=== PATIENT | male | born 1955 | race Caucasian/White ===

== ENCOUNTER 2025-03-22 11:11 | Observation (INO) | payer MEDICARE, OTHER ==
[~2025-03-22] VITALS: Ht 193 cm; Wt 89.8 kg
[2025-03-22] VITALS (7 sets, daily range): BP systolic 107–120; BP diastolic 67–80; PULSE 71–89; RESP 16–29; TEMP 97.9–98.5; O2SAT 91–92
[~2025-03-22 11:11] MED LIST: ARMO50TA2 PO; FURO40TA5 PO; LACT10SO9 PO; MIDO10TA3 PO; PANT40TA54 PO; RIFA550T PO; SPIR100T5 PO; TRAM50TA4 PO; TRAZ-187 PO
[2025-03-22] MEDS: FAMOTIDINE 20MG VIAL IV ONE (11:36)
[2025-03-22] MEDS: 0.9% NACL 500ML IV.SOLN 500 ML IV ONE (11:38)
--- NOTE | 2025-03-22 11:41 | ERN ---
General Chief Complaint: Allergic Reaction Stated Complaint: BEE STING Time Seen by MD: 11:13 Source: patient, family History of Present Illness Initial Comments PATIENT IS A 69-YEAR-OLD MALE COMING IN TO BE EVALUATED AFTER HE GOT BIT BY SEVERAL BEES. PATIENT STATES HE WAS MOVING SOME HAY COURT AND GOT STUNG BY SEVERAL BEES. Allergies: Coded Allergies: No Known Allergies (Unverified Allergy, Unknown, 01/10/14) No Known Drug Allergies (Unverified Allergy, Unknown, 01/07/14) Home Meds Reported Medications Lactulose (Lactulose) 20 Gm/30 Ml Solution, 20 GM PO TID, ML 06/23/14 Trazodone HCl (Trazodone HCl) 100 Mg Tablet, 100 MG PO HS, TAB 06/22/14 Tramadol Hcl (Tramadol HCl) 50 Mg Tablet, 50 MG PO TID PRN for PAIN, TAB 06/22/14 Spironolactone (Spironolactone) 100 Mg Tablet, 100 MG PO AM, TAB 06/22/14 Rifaximin (Xifaxan) 550 Mg Tablet, 550 MG PO BIDMEALS, TAB 06/22/14 Pantoprazole Sodium (Pantoprazole Sodium) 40 Mg Tablet.dr, 40 MG PO ACBKFST, TAB SCHEDULE AT 6AM 06/22/14 Midodrine HCl (Midodrine HCl) 10 Mg Tablet, 10 MG PO TID, TAB 06/22/14 Furosemide (Furosemide) 40 Mg Tablet, 40 MG PO BIDMEALS, TAB 06/22/14 Armodafinil (Nuvigil) 50 Mg Tablet, 50 MG PO ACBKFST, TAB 06/22/14 Past Medical History Past Medical History: Other Medical History Other: LIVER TRANSPLANT Past Surgical History: Other Surgical History Other: LIVER TRANSPATN ROS Dictation CONSTITUTIONAL: NO CHILLS, NO FEVER, NO WEAKNESS, NO DIAPHORESIS, NO MALAISE. HEAD/FACE: NO SIGNS OF TRAUMA. EENT: NO EYE PAIN, NO BLURRED VISION, NO TEARING, NO DOUBLE VISION, NO EAR PAIN, NO EAR DISCHARGE, NO NOSE PAIN, NO NASAL CONGESTION, NO THROAT PAIN, NO THROAT SWELLING, NO MOUTH PAIN. RESPIRATORY: NO COUGH, NO ORTHOPNEA, SOB, NO STRIDOR, NO WHEEZING. CARDIOVASCULAR: NO CHEST PAIN, NO EDEMA, NO PALPITATIONS, NO SYNCOPE. GASTROINTESTINAL/ABDOMINAL: NO ABDOMINAL PAIN, NO CONSTIPATION, NO DIARRHEA, NO NAUSEA, NO VOMITING. GENITOURINARY: NO ABNORMAL DISCHARGE, NO DYSURIA, NO FREQUENT URINATION, NO HEMATURIA. NO COMPLAINTS OF PAIN IN THE GENITALS. MUSCULOSKELETAL: NO BACK PAIN, NO GOUT, NO JOINT PAIN, NO JOINT SWELLING, NO MUSCLE PAIN, NO MUSCLE STIFFNESS, NO NECK PAIN. INTEGUMENTARY: NO CHANGE IN COLOR, NO CHANGE IN HAIR/NAILS, NO DRYNESS, NO LESION, NO LUMPS, NO RASH. NEUROLOGICAL/PSYCH: NO ANXIETY, NOT DEPRESSED, NO EMOTIONAL PROBLEM, NO HEADACHE, NO NUMBNESS, NO PRE-EXISTING DEFICIT, NO HISTORY OF SEIZURES, NO TREMORS, NO WEAKNESS. HEMATOLOGIC/LYMPHATIC: NOT ANEMIC, NO HISTORY OF BLOOD CLOTS, NO APPARENT BLEEDING, NO BRUISING, GLANDS NOT SWOLLEN. ALL SYSTEMS NEGATIVE, EXCEPT NOTED. Physical Exam Physical Exam Dictation VITAL SIGNS: REVIEWED. GENERAL APPEARANCE: ALERT, ORIENTED X3, NO ACUTE DISTRESS, OBESE. HEAD AND FACE: NON-TRAUMATIC. EYES: PERRL, PINK CONJUNCTIVAS, EYELID NO TRAUMA, ANTERIOR CHAMBER CLEAR. EARS: PINNAS INTACT AND NO SIGNS OF TRAUMA OR ERYTHEMA. EAR CANALS CLEAR AND NO DISCHARGE. TMS NO ERYTHEMA. NOSE: NO DISCHARGE, NO BLEEDING. OROPHARYNX: MOUTH NORMAL, TEETH NO CARIES, TONGUE PINK. PHARYNX CLEAR, NO ERYTHEMA. TONSILS NO EXUDATES, NO ABSCESSES NOTED. MUCOUS MEMBRANE MOIST. NECK: SUPPLE, NON-TENDER, NO THYROMEGALY, NO MASSES, NO JVD, NO BRUITS. BREAST: DEFERRED. CHEST: NO TENDERNESS, NO CREPITUS, NO PARADOXICAL MOVEMENT, NO RETRACTIONS. LUNGS: CLEAR, WELL-VENTILATED, SYMMETRIC, NO RALES, NO WHEEZING, NO RHONCHI, NO STRIDOR, GOOD BREATH SOUNDS BILATERALLY. HEART: REGULAR RATE, REGULAR RHYTHM, NO MURMUR, NO GALLOPS. VASCULAR: NO PERIPHERAL EDEMA. ABDOMEN: SOFT, POSITIVE BOWEL SOUNDS, NONDISTENDED, NO GUARDING, NONTENDER, NO REBOUND, NO MASSES NO HEPATOMEGALY, NO SPLENOMEGALY, NO WEBBER'S SIGN, NO HERNIAS. RECTAL: DEFERRED. GENITAL: DEFERRED. NEUROLOGICAL: NORMAL SPEECH, GROSS MOTOR FUNCTION INTACT, GROSS SENSORY FUNCTION INTACT. MUSCULOSKELETAL: NECK NONTENDER, FULL RANGE OF MOTION, BACK NONTENDER, FULL RANGE OF MOTION. EXTREMITIES: NONTENDER, FULL RANGE OF MOTION. SKIN: COLOR PINK, DRY, NO TURGOR, NO RASH, NO LACERATIONS, NO ABRASIONS, NO CONTUSIONS. LYMPHATICS: DEFERRED. Results Laboratory and Microbiology Labs Reviewed?: Yes MDM MDM: DIFFERENTIAL DIAGNOSIS: BEE STING, ALLERGIC REACTION, RATIONALE: TESTS CONSIDERED AND ORDERED SECONDARY TO SHARED DECISION MAKING INCLUDE: LABS, ECG AND RADIOLOGY PREVIOUS OUTSIDE RECORDS REVIEWED: OLD ER VISITS. RISK OF COMPLICATION AND/OR MORBIDITY OR MORTALITY OF PATIENT MANAGEMENT: NONE MEDICATIONS-PER MEDICATION RECONCILIATION NEED FOR HOSPITALIZATION: PATIENT DOES MEET CRITERIA FOR HOSPITALIZATION. NEED FOR EMERGENCY MAJOR/MINOR SURGERY: NO THERE ARE NO SOCIAL CONCERNS WITH THIS PATIENT. PRESCRIPTION DRUG MANAGEMENT PRESCRIPTIONS WILL INCLUDE SYMPTOMATIC CARE PATIENT'S PRIOR EXTERNAL MEDICAL RECORDS FROM OTHER ER VISITS WERE REVIEWED BY ME INDICATED. PRIOR TESTING AND RESULTS FROM PREVIOUS VISITS WERE REVIEWED. PRIOR TESTS WERE TAKEN INTO ACCOUNT WITH MEDICAL DECISION MAKING AND RESOURCE UTILIZATION, INDEPENDENT HISTORIAN/HISTORIANS WERE USED TO OBTAIN COMPLETE MEDICAL HISTORY. I INDEPENDENTLY INTERPRETED THE TEST THAT WERE PERFORMED, RESULTS WERE REVIEWED BY ME AND CONSIDERED FINDINGS ON RADIOLOGY IF ORDERED. MEDICAL MANAGEMENT AND EXAMINATION INTERPRETATION DISCUSSIONS WERE HAD BY ME WITH OTHER QUALIFIED HEALTHCARE PROFESSIONALS INDICATED FOR THE PATIENT'S CARE. PATIENT WILL BE ADMITTED UNDER THE CARE OF HOSPITALIST GROUP FOR ONGOING MANAGEMENT. ED Course Orders Procedure Category Date Status Time Methylprednisolone PHA 03/22/25 Complete Succ 125mg (Solu-Medr 11:30 Famotidine 20mg Vial PHA 03/22/25 Complete (Pepcid 20mg Vial) 11:30 Diphenhydramine Hcl PHA 03/22/25 Complete (Benadryl Inj) 11:30 0.9% Nacl 500ml PHA 03/22/25 Complete Iv.Soln (Ns 500ml 11:30 Cbc With Differential LAB 03/22/25 Transmitted 11:37 Basic Metabolic Panel LAB 03/22/25 Transmitted 11:37 Creatine Kinase, Total LAB 03/22/25 Transmitted 11:37 12 Lead Ekg Tracing- EKG 03/22/25 Transmitted Technical 11:37 Chest 1vw RAD 03/22/25 Verified 11:37 Current Medications Medications (Trade) Dose Ordered Sig/Cedrick Route PRN Reason Start Time Stop Time Status Last Admin Dose Admin Diphenhydramine HCl (BENAdryl INJ) 25 mg ONCE ONCE IV 03/22/25 11:30 03/22/25 11:31 DC Famotidine (Pepcid 20mg Vial) 20 mg ONCE ONCE IV 03/22/25 11:30 03/22/25 11:31 DC Methylprednisolone Sodium Succinate (Solu-medROL 125MG) 125 mg ONCE ONCE IVP 03/22/25 11:30 03/22/25 11:31 DC Sodium Chloride 500 ml @ 0 mls/hr ONCE ONCE IV 03/22/25 11:30 03/22/25 11:31 DC Vital Signs Date Time Temp Pulse Resp B/P (MAP) Pulse Ox O2 Delivery O2 Flow Rate FiO2 03/22/25 11:12 98.4 95 20 122/74 94 Room Air DX & DISP Disposition: Inpatient Decision to Admit Time: 11:41 Departure Impression: Primary Impression: Allergic reaction Additional Impressions: Bee sting, Shortness of breath Condition: Stable Referrals: DELVIN BARBOUR MD (PCP) RADHA VASQUEZ MD Mar 22, 2025 11:41
--- NOTE | 2025-03-22 11:53 | EKG ---
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
[2025-03-22 11:54] LABS: IMMATURE GRANULOCYTE ABSOLUTE 0.08 K/uL (0-1); NUCLEATED RED BLOOD CELLS 0.0 % (0.0-0.19); PLATELET COUNT (AUTO) 247 K/uL (130-400); RED BLOOD CELL COUNT(AUTO) 4.86 MIL/uL (4.50-6.20); RED CELL DISTRIBUTION WIDTH 12.9 % (11.0-15.5); WHITE BLOOD COUNT (AUTO) 12.3 K/uL (4.8-10.8)
[2025-03-22] MEDS: ALBUTEROL 0.083% 2.5 MG/3 ML INH IH ONE (11:54)
[2025-03-22 12:02] LABS: CREATININE 0.9 mg/dL (0.5-1.3); GLOMERULAR FILTR. RATE CALC 92.0 mL/min (>90); GLUCOSE,RANDOM 150.0 mg/dL (70-105); SODIUM SERUM 136.0 mmol/L (136-145); UREA NITROGEN, BLOOD 21.0 mg/dL (7-18)
[2025-03-22 12:07] LABS: CREATINE KINASE, TOTAL 64.0 U/L (21-232)
--- NOTE | 2025-03-22 12:23 | HP ---
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 He was stung by bees. Per patient he has had bee stings before and has not had significant reaction in the past. He has taken Benadryl in the past for business. This time he got bit by multiple bees. EMS was called who brought the patient to the hospital. Patient did not need epinephrine and was not noted to be hypotensive. Patient currently denies any chest pain, shortness of breath, throat swelling, tongue swelling, difficulty breathing, abdominal pain, nausea, vomiting. Patient has a history of liver transplant and is being followed by hepatology and [place]. He took his morning medications today. Denies any fever, chills. Labs were notable for white count of 12.3, hemoglobin is 14.6, platelet count is 247 K sodium is 136, potassium was 4.4, chloride is 100, bicarb is 30, BUN is 21, creatinine is 0.9, blood glucose is 150 ED patient received methylprednisolone 125 mg IV, Pepcid 20 mg, Benadryl 25 mg, 500 mL NS, albuterol 2.5 mg once Over 30 bee-stings were removed by ED On presentation patient's temperature was 98.4, heart rate was 95, blood pressure was 122/74. Patient saturation went down to 89 and he was placed on 2 L nasal cannula with subsequent improvement. Patient was thereafter recommended to be admitted to the hospital for further evaluation. REVIEW OF SYSTEMS CONSTITUTIONAL: Denies fevers, chills, or night sweats. No unintentional weight loss reported. NEUROLOGICAL: Denies headache, amaurosis fugax, motor weakness, sensory deficit, vertigo/spinning sensation, gait abnormalities, or tremors. ENT: No hearing loss, otalgia, otorrhea, rhinitis, rhinorrhea, hoarseness, or sore throat. CARDIOVASCULAR: Denies any exertional angina, dyspnea on exertion, orthopnea, paroxysmal nocturnal dyspnea, palpitations, life-threatening arrhythmias, claudication. PULMONARY: Denies any shortness of breath, cough, phlegm/sputum, hemoptysis, pleuritic chest pain. GASTROINTESTINAL: Denies any type of dysphagia to either liquids or solids. Denies nausea, vomiting, pyrosis, early satiety, abdominal pain, diarrhea, constipation, or changes in stool consistency or caliber. Denies coffee-ground emesis, hematemesis, hematochezia, or melanotic stools. GENITOURINARY: Denies frequency, urgency, nocturia, hematuria or incontinence (Storage/Irritative symptoms.) Low urinary stream, straining to void, urinary intermittency or hesitancy, splitting of the voiding stream, terminal dribbling. ENDOCRINOLOGIC: Denies polyuria, polydipsia, polyphagia or heat/cold intolerances. HEMATOLOGIC: Denies thrombophilia/previous clots, or coagulopathy/bleeding disorders. ONCOLOGIC: Denies personal history of malignancy. DERMATOLOGIC: Denies rashes or pruritus. PSYCHIATRIC: Denies any suicidal or homicidal ideation. Denies hallucinations. PAST MEDICAL HISTORY: History of nonalcoholic liver cirrhosis status post liver transplant, hypertension, DM2 PAST SURGICAL HISTORY: Liver transplant performed in [place] PAST SOCIAL HISTORY: Denied any smoking, alcohol, drug use FAMILY HISTORY: Denied any pertinent family history Coded Allergies: codeine (Verified Allergy, Unknown, 03/22/25) PHYSICAL EXAM GENERAL APPEARANCE: The patient is awake, alert, and oriented, in no acute cardiopulmonary distress. NEUROLOGICAL: Cranial nerves II-XII grossly intact. Motor is 5/5 in bilateral upper and lower extremities proximal to distal. No sensory deficits. HEENT: Face is symmetric. Pupils are equal and reactive. Extraocular movements are intact. Patient has a facial swelling noted with lip swelling. There is erythema on the face secondary. No tongue swelling noted NECK: Supple. No JVD. No thyromegaly. No submental, submandibular, pre-/postauricular, occipital or supraclavicular lymphadenopathy. CHEST: Normal chest expansion. No Telemetry. LUNGS: Absence of any rales, rhonchi or any wheezing. CARDIOVASCULAR: Regular. S1 and S2 normal. No appreciable rubs, murmurs or gallops. ABDOMEN: Soft, nontender, and nondistended. There is no rebound, voluntary guarding, or rigidity. : Deferred. No Bazzi. EXTREMITIES: Non-edematous and not cyanotic. No clubbing. Good capillary refill. SKIN: He has erythema on the upper extremity with hives noted secondary to bee sting Vital Sign (Last 24 Hours) 03/22/25 03/22/25 11:49 11:55 Temp 97.9 Pulse 80 Resp 16 B/P (MAP) 114/67 Pulse Ox 97 O2 Delivery Nasal Cannula* O2 Flow Rate 2 FiO2 28 LABS: Laboratory: Test 03/22/25 11:45 Range/Units White Blood Count 12.3 H 4.8-10.8 K/uL Red Blood Count 4.86 4.50-6.20 MIL/uL Hemoglobin 14.6 14.0-18.0 g/dL Hematocrit 44.7 42-54 % Mean Corpuscular Volume 92.0 79-99 fL Mean Corpuscular Hemoglobin 30.0 27.0-33.0 pg Mean Corpuscular Hemoglobin Concent 32.7 32.0-36.0 g/dL Red Cell Distribution Width 12.9 11.0-15.5 % Platelet Count 247 130-400 K/uL Mean Platelet Volume 8.9 7.5-10.5 fL Immature Granulocyte % (Auto) 0.7 0-1 % Neutrophils (%) (Auto) 77.4 H 40.0-77.0 % Lymphocytes (%) (Auto) 16.2 L 21.0-51.0 % Monocytes (%) (Auto) 5.1 3.0-13.0 % Eosinophils (%) (Auto) 0.4 0.0-8.0 % Basophils (%) (Auto) 0.2 0.0-5.0 % Neutrophils # (Auto) 9.5 H 1.8-7.7 K/uL Lymphocytes # (Auto) 2.0 1.0-4.8 K/uL Monocytes # (Auto) 0.6 0.1-1.0 K/uL Eosinophils # (Auto) 0.05 0.00-0.70 K/uL Basophils # (Auto) 0.03 0.00-0.20 K/uL Absolute Immature Granulocyte (auto 0.08 0-1 K/uL Nucleated Red Blood Cells 0.0 0.0-0.19 % Sodium Level 136 136-145 mmol/L Potassium Level 4.4 3.5-5.1 mmol/L Chloride Level 100 L 101-111 mmol/L Carbon Dioxide Level 30 21-32 mmol/L Blood Urea Nitrogen 21 H 7-18 mg/dL Creatinine 0.9 0.5-1.3 mg/dL Glomerular Filtration Rate Calc 92 >90 mL/min Random Glucose 150 H 70-105 mg/dL Total Calcium 9.3 8.5-10.1 mg/dL Total Creatine Kinase 64 21-232 U/L DIAGNOSTICS / RADIOLOGY: Chest x-ray currently pending ASSESSMENT: Allergic reaction to bee sting History of liver transplant Leukocytosis likely in setting of allergic reaction Immunosuppressed states PLAN: -patient to be admitted to [facility] -in reference to allergic reaction to bee sting. Patient will continue on Solu- Medrol 40 mg IV q.8 hours. The patient will continue on IV Pepcid. We will request consultation with pulmonology. Patient will benefit from outpatient allergy evaluation once discharged from the hospital. Patient we will follow up with his primary care provider. -check LFT, hemoglobin A1c -obtain patient's home medications which will be reconciled once available -closely monitor for any fevers. If febrile, patient will be started on antibiotics Advanced Care Planning Which of the following were discussed: Hospice care: Yes __ No _x_ Therapeutic options: Yes __ No __ Advance directives: Yes __ No __ Other discussions: Pt is full code Discussed with who?: patient (Patient, family or surrogates) Voluntary nature of this service was explained to the patient? Yes _x_ No __ Amount of time spent: 20 minutes BLANCA Gonsales MD, MD Mar 22, 2025 12:23
[2025-03-22 12:51] LABS: ASPARTATE AMINOTRANSFERASE 17.0 U/L (10-37); TOTAL PROTEIN, SERUM 8.2 g/dL (6.0-8.3)
--- NOTE | 2025-03-22 12:58 | HMCIMG ---
EXAM: CR Chest, 1 View. CLINICAL HISTORY: SOB COMPARISON: Radiograph dated April 20, 2014 FINDINGS: LUNGS: There is multifocal airspace disease within the mid to lower lungs bilaterally. PLEURAL SPACES: No evidence of pleural effusion or pneumothorax. MEDIASTINUM: The cardiomediastinal silhouette is within normal limits. BONES: No aggressive appearing osseous lesion seen. IMPRESSION: 1. Multifocal airspace disease in bilateral mid to lower lungs. /[place]
[2025-03-22] MEDS ORDERED: DEXTROSE 50%-WATER 50 ML DISP.SYRIN IV PRN (13:00)
[2025-03-22] MEDS ORDERED: GLUCAGON 1MG KIT 1 MG ML IM PRN (13:00)
--- NOTE | 2025-03-22 13:28 | CONS ---
[facility] CONSULTATION NOTE Date Patient Seen: Mar 22, 2025 Time of Visit: 13:28 Supervising Physician: Dr. 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 HPI was also give by at bedside. Patient denied any SOB, denied inability to swallow, tongue swelling or difficulty breathing. On arrival to the ER, WBC 12.3, CXR showed multifocal airspace disease in bilateral mid to lower lungs. Pending CT chest. In the ER, he was given solu- medrol 125mg IV, Pepcid, Benadryl 25mg IV, 500ml NS and Albuterol 2.5mg once. Over 30 bee stinger were removed. While in the ER, patient SPO2 levels decreased to 89%, subsequently placed on 2 L nasal cannula with improvement. Patient was thereafter recommended to be admitted to the hospital for further evaluation by hospitalist. BIS was consulted for further recommendations. Upon assessment, patient is AAOX3. Currently on 02@2LPM via CA. Denies SOB, no wheezing or stridor audible. Denies any chest pain, abdominal pain, nausea or vomiting. States he feels fine overall. Thank you for consult, we will continue to follow. Plan: Start on Solu-Medrol 40mg IVP every [address] chest to result, follow results Benadryl cream for right arm redness One dose of oral Benadryl later today AM labs Monitor SPO2 levels closely, oxygen to keep SPO2 greater than 90% PAST MEDICAL HX: see above PAST SURGICAL HX: noncontributory SOCIAL HISTORY: No tobacco, ETOH, or illicit drug use Former tobacco chewer Coded Allergies: codeine (Verified Allergy, Unknown, 03/22/25) REVIEW OF SYSTEMS: 12 point ROS reviewed with patient. Pertinent positives mentioned above. Otherwise negative. PHYSICAL EXAM: GENERAL: alert, weak, awake oriented x 3 on NC HEENT: EOMI, Sclera non icteric, moist mucosa (+) erythema to right arm and a round eyes NECK: Supple, no JVD, trachea midline LUNGS: Clear breath sounds bilaterally. No wheezes HEART: Regular rate and rhythm. Normal S1 and S2, without murmurs ABD: Abdomen soft, nontender. Bowel sounds present EXT: No clubbing cyanosis or edema NEURO: AAOX3, follows commands Vital Signs (last 8hr) Date Time Temp Pulse Resp B/P (MAP) Pulse Ox O2 Delivery O2 Flow Rate FiO2 03/22/25 11:55 80 16 03/22/25 11:49 97.9 102 14 114/67 97 Nasal Cannula* 2 28 03/22/25 11:12 98.4 95 20 122/74 94 Room Air LABS: Hematology Labs: Test 03/22/25 11:45 Range/Units White Blood Count 12.3 H 4.8-10.8 K/uL Red Blood Count 4.86 4.50-6.20 MIL/uL Hemoglobin 14.6 14.0-18.0 g/dL Hematocrit 44.7 42-54 % Mean Corpuscular Volume 92.0 79-99 fL Mean Corpuscular Hemoglobin 30.0 27.0-33.0 pg Mean Corpuscular Hemoglobin Concent 32.7 32.0-36.0 g/dL Red Cell Distribution Width 12.9 11.0-15.5 % Platelet Count 247 130-400 K/uL Mean Platelet Volume 8.9 7.5-10.5 fL Immature Granulocyte % (Auto) 0.7 0-1 % Neutrophils (%) (Auto) 77.4 H 40.0-77.0 % Lymphocytes (%) (Auto) 16.2 L 21.0-51.0 % Monocytes (%) (Auto) 5.1 3.0-13.0 % Eosinophils (%) (Auto) 0.4 0.0-8.0 % Basophils (%) (Auto) 0.2 0.0-5.0 % Neutrophils # (Auto) 9.5 H 1.8-7.7 K/uL Lymphocytes # (Auto) 2.0 1.0-4.8 K/uL Monocytes # (Auto) 0.6 0.1-1.0 K/uL Eosinophils # (Auto) 0.05 0.00-0.70 K/uL Basophils # (Auto) 0.03 0.00-0.20 K/uL Absolute Immature Granulocyte (auto 0.08 0-1 K/uL Nucleated Red Blood Cells 0.0 0.0-0.19 % Chemistry Labs: Test 03/22/25 11:45 Range/Units Sodium Level 136 136-145 mmol/L Potassium Level 4.4 3.5-5.1 mmol/L Chloride Level 100 L 101-111 mmol/L Carbon Dioxide Level 30 21-32 mmol/L Blood Urea Nitrogen 21 H 7-18 mg/dL Creatinine 0.9 0.5-1.3 mg/dL Glomerular Filtration Rate Calc 92 >90 mL/min Random Glucose 150 H 70-105 mg/dL Hemoglobin A1c 6.5 H 4.0-6.0 % Estimated Average Glucose (eAG) 140 H 70-126 mg/dL Total Calcium 9.3 8.5-10.1 mg/dL Total Bilirubin 0.5 0.2-1.0 mg/dL Direct Bilirubin 0.2 0.0-0.3 mg/dL Aspartate Amino Transf (AST/SGOT) 17 10-37 U/L Alanine Aminotransferase (ALT/SGPT) 25 12-78 U/L Alkaline Phosphatase 103 50-136 U/L Total Creatine Kinase 64 21-232 U/L Total Protein 8.2 6.0-8.3 g/dL Albumin 3.9 3.5-5.0 g/dL Procalcitonin < 0.05 L 0.05-0.5 ng/mL DIAGNOSTICS / RADIOLOGY RESULTS: PROCEDURE: CXR1VW - CHEST 1VW EXAM: CR Chest, 1 View. CLINICAL HISTORY: SOB COMPARISON: Radiograph dated April 20, 2014 FINDINGS: LUNGS: There is multifocal airspace disease within the mid to lower lungs bilaterally. PLEURAL SPACES: No evidence of pleural effusion or pneumothorax. MEDIASTINUM: The cardiomediastinal silhouette is within normal limits. BONES: No aggressive appearing osseous lesion seen. IMPRESSION: 1. Multifocal airspace disease in bilateral mid to lower lungs. /VISHAL Miranda NP Mar 22, 2025 13:28
[2025-03-22] MEDS ORDERED: Solu-medROL 40MG VIAL IVP SCH (13:30)
[2025-03-22 14:08] LABS: SARS-CoV-2, RNA, NAAT NEGATIVE SARS CoV-2 (NEGATIVE)
[2025-03-22 14:14] LABS: INFLUENZA TYPE A Negative For Type A (NEGATIVE); INFLUENZA TYPE B Negative For Type B (NEGATIVE)
[2025-03-22] MEDS: SODIUM CHLORIDE 3% FOR INHALATION 4 ML/AMP VIAL.NEB IH ONE (14:33)
--- NOTE | 2025-03-22 15:03 | HMCIMG ---
EXAM: CT Chest Without IV contrast. CLINICAL HISTORY: Possible pneumonia. TECHNIQUE: Axial computed tomography images of the chest without intravenous contrast. COMPARISON: None provided. FINDINGS: LUNGS: Focal subpleural areas of consolidation in right lower lobe is seen. Fibroatelectatic and fibrobronchiectatic changes are seen in both lower lobes predominantly on right side. Partial volume loss of right lung parenchyma seen with right sided mediastinal shift. Compensatory hyperexpansion of left lung parenchyma is seen. Multiple ground-glass centrilobular nodules are seen in both lungs predominantly on the right side. PLEURAL SPACES: No pneumothorax evident. Minimal right-sided pleural effusion. HEART: No cardiomegaly. No significant pericardial effusion. Atherosclerotic changes in aorta. LYMPH NODES: No significant lymphadenopathy is evident. Few subcentimetre sized right paratracheal, subcarinal, AP window and prevascular lymph nodes are seen. UPPER ABDOMEN: The upper abdominal solid organs are unremarkable. An ill-defined hypodense right thyroid lobe nodule is seen measuring 3.8 x 3 cm. It is showing mild retrosternal extension. BONES: No acute osseous abnormality. Degenerative changes of visualised spine. IMPRESSION: 1. Right lower lobe consolidation, concerning for pneumonia. 2. Small right pleural effusion. 3. Chronic right lung volume loss with mediastinal shift and compensatory left lung hyperexpansion. 4. Bilateral ground-glass centrilobular nodules, right greater than left. These likely reflect an infectious and/or inflammatory process, recommend follow-up CT imaging. 5. 3.8 x 3 cm right thyroid nodule with mild retrosternal extension. Recommend ultrasound correlation. /[place]
[2025-03-22] MEDS ORDERED: METO25TA6 PO (15:35)
[2025-03-22] MEDS ORDERED: LOSA50TA64 PO (15:35)
[2025-03-22] MEDS ORDERED: ENTE0.5T12 PO (15:35)
[2025-03-22] MEDS ORDERED: ZINC220T4 PO (15:35)
[2025-03-22] MEDS ORDERED: CHOL1CAP16 PO (15:35)
[2025-03-22] MEDS ORDERED: ROSU10TA72 PO (15:35)
[2025-03-22] MEDS ORDERED: EMPA10TA PO (15:35)
[2025-03-22] MEDS ORDERED: MULT-1203 PO (15:35)
[2025-03-22] MEDS ORDERED: SEMA0.258 SQ (15:35)
[2025-03-22] MEDS ORDERED: TACR1CAP10 PO (15:35)
[2025-03-22] MEDS ORDERED: PRAM0.7519 PO (15:35)
[2025-03-22 16:20] LABS: APPEARANCE,URINE CLEAR (CLEAR); GLUCOSE, URINE (UA) >=1000 mg/dL (NEGATIVE); LEUKOCYTE ESTERASE ,URINE NEGATIVE Leu/uL (NEGATIVE); NITRATE,URINE NEGATIVE (NEGATIVE); OCCULT BLOOD,URINE NEGATIVE (NEGATIVE)
--- NOTE | 2025-03-22 16:20 | NUR ---
DCP:HOME Pt currently lives at home with his sps Myla Pabon [phone]. pt does not have any DME, home health, and/or provider services. Pt states that he is able to complete ADLs independently. PCP is Dr. Blsa Gnozalez and uses [facility] for any RX needs. At CT pt will want to go home and family can assist with transportation services. Addendum: 03/22/25 at 1622 by JOHNSON LARSON SS Amended: Links added.
[2025-03-22 16:23] LABS: ADD UA MICROSCOPIC NO
[2025-03-22] MEDS: ROSUVASTATIN CALCIUM PO SCH (17:00)
--- NOTE | 2025-03-22 17:58 | CONS ---
GASTROENTEROLOGY CONSULTATION NOTE Date of Consultation: Mar 22, 2025 Time of Consultation: 17:54 History of Present Illness: [ This is a 69-year-old male patient who presents to the emergency room after getting stung by several bees. 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 Were consulted for history of liver transplant. Admission WBC of 12.3, hemoglobin 14.6, platelets 247. Chemistry significant for chloride of 100, BUN 21, glucose of 150, hemoglobin A1c of 6.5, total bilirubin 0.5, direct bilirubin 0.2, AST and ALT are normal, alkaline phosphatase of 103. Total protein 8.2, and albumin of 3.9. Chest x-ray significant for multifocal airspace disease in bilateral mid to lower lungs. Chest CT IMPRESSION: 1. Right lower lobe consolidation, concerning for pneumonia. 2. Small right pleural effusion. 3. Chronic right lung volume loss with mediastinal shift and compensatory left lung hyperexpansion. 4. Bilateral ground-glass centrilobular nodules, right greater than left. These likely reflect an infectious and/or inflammatory process, recommend follow-up CT imaging. 5. 3.8 x 3 cm right thyroid nodule with mild retrosternal extension. Recommend ultrasound correlation. On exam, patient is awake and alert and in no acute distress. Swelling noted to his face and ears. Patient reports having multiple bee-stings to face and neck. Spouse at bedside said swelling has decreased to face and ears. She reports that she has already been in contact with patient's liver specialist from [place] as well as her PCP in [place], [place]. Recommend patient f/u next week with pcp. Patient and spouse agreed. ] Review of Systems: CONSTITUTIONAL: No malaise or change in sensation of wellbeing. ENMT: No rhinorrhea, otorrhea, sinus pain, ear ache. CARDIOVASCULAR: No angina, palpitations, orthopnea or paroxysmal dyspnea. RESPIRATORY: No SOB. GASTROINTESTINAL: No abdominal pain, nausea, vomiting, diarrhea, hematemesis, melena or change in the patient's habitual bowel movements consistency/number. GENITOURINARY: No dysuria, hematuria or change in bladder continence. MUSCULOSKELETAL: No new muscle pain or decrease in muscular strength. No new joint swelling, redness or tenderness. SKIN: No new rash. Past Medical History: [ ] Past Surgical History: [ ] Past Social History: [ ] Family History: [ ] Coded Allergies: codeine (Verified Allergy, Unknown, 03/22/25) Physical Exam: GEN: Awake, alert, oriented in person, time and place, and in no acute distress. HEENT: Mild swelling and erythema to bilateral ears noted. No rhinorrhea. Oral pharyngeal mucosa is pink, moist and within normal limits. Neck with multiple erythematous areas. CHEST: Inspection, palpation and percussion of the chest were unremarkable. Lung auscultation revealed normal breath sounds bilaterally. CARDIAC: PMI is within normal limits. Heart sounds are regular. ABD: Soft, non-tender and not distended. No peritoneal signs on palpation. No organomegaly. Normal bowel sounds. EXT: No cyanosis or clubbing. No edema. SKIN: Intact. No rashes. JOINTS: No evidence of synovitis or acute arthritis. NEURO: Alert and oriented to name, place and person. No focal motor deficits. Normal speech. Strength is normal. Vital Sign (Last 24 Hours) 03/22/25 03/22/25 11:49 16:00 Temp 98.1 Pulse 76 Resp 19 B/P (MAP) 115/73 Pulse Ox 97 O2 Delivery Nasal Cannula O2 Flow Rate 2.0 FiO2 28 Laboratory: [ ] Laboratory: Test 03/22/25 16:00 03/22/25 13:50 03/22/25 11:45 Range/Units Urine Color LIGHT-YELLOW YELLOW Urine Appearance CLEAR CLEAR Urine pH 5.0 5.0-8.0 Urine Specific [place] 1.015 1.001-1.031 Urine Protein NEGATIVE NEGATIVE mg/dL Urine Glucose (UA) >=1000 H NEGATIVE mg/dL Urine Ketones 10 H NEGATIVE mg/dL Urine Occult Blood NEGATIVE NEGATIVE Urine Nitrate NEGATIVE NEGATIVE Urine Bilirubin NEGATIVE NEGATIVE mg/dL Urine Urobilinogen 0.2 0.2-1.0 mg/dL Urine Leukocyte Esterase NEGATIVE NEGATIVE Michelle/uL Influenza Type A Antigen Negative For Type A NEGATIVE Influenza Type B Antigen Negative For Type B NEGATIVE SARS-CoV-2, RNA, NAAT NEGATIVE SARS CoV-2 NEGATIVE White Blood Count 12.3 H 4.8-10.8 K/uL Red Blood Count 4.86 4.50-6.20 MIL/uL Hemoglobin 14.6 14.0-18.0 g/dL Hematocrit 44.7 42-54 % Mean Corpuscular Volume 92.0 79-99 fL Mean Corpuscular Hemoglobin 30.0 27.0-33.0 pg Mean Corpuscular Hemoglobin Concent 32.7 32.0-36.0 g/dL Red Cell Distribution Width 12.9 11.0-15.5 % Platelet Count 247 130-400 K/uL Mean Platelet Volume 8.9 7.5-10.5 fL Immature Granulocyte % (Auto) 0.7 0-1 % Neutrophils (%) (Auto) 77.4 H 40.0-77.0 % Lymphocytes (%) (Auto) 16.2 L 21.0-51.0 % Monocytes (%) (Auto) 5.1 3.0-13.0 % Eosinophils (%) (Auto) 0.4 0.0-8.0 % Basophils (%) (Auto) 0.2 0.0-5.0 % Neutrophils # (Auto) 9.5 H 1.8-7.7 K/uL Lymphocytes # (Auto) 2.0 1.0-4.8 K/uL Monocytes # (Auto) 0.6 0.1-1.0 K/uL Eosinophils # (Auto) 0.05 0.00-0.70 K/uL Basophils # (Auto) 0.03 0.00-0.20 K/uL Absolute Immature Granulocyte (auto 0.08 0-1 K/uL Nucleated Red Blood Cells 0.0 0.0-0.19 % Sodium Level 136 136-145 mmol/L Potassium Level 4.4 3.5-5.1 mmol/L Chloride Level 100 L 101-111 mmol/L Carbon Dioxide Level 30 21-32 mmol/L Blood Urea Nitrogen 21 H 7-18 mg/dL Creatinine 0.9 0.5-1.3 mg/dL Glomerular Filtration Rate Calc 92 >90 mL/min Random Glucose 150 H 70-105 mg/dL Hemoglobin A1c 6.5 H 4.0-6.0 % Estimated Average Glucose (eAG) 140 H 70-126 mg/dL Total Calcium 9.3 8.5-10.1 mg/dL Total Bilirubin 0.5 0.2-1.0 mg/dL Direct Bilirubin 0.2 0.0-0.3 mg/dL Aspartate Amino Transf (AST/SGOT) 17 10-37 U/L Alanine Aminotransferase (ALT/SGPT) 25 12-78 U/L Alkaline Phosphatase 103 50-136 U/L Total Creatine Kinase 64 21-232 U/L Total Protein 8.2 6.0-8.3 g/dL Albumin 3.9 3.5-5.0 g/dL Procalcitonin < 0.05 L 0.05-0.5 ng/mL Current Medications Medications (Trade) Dose Ordered Sig/Cedrick Route PRN Reason Start Time Stop Time Status Last Admin Dose Admin Acetaminophen (TYLenol 500MG TAB) 500 mg Q6H PRN PO MILD PAIN (1-3) 03/22/25 12:30 04/21/25 12:29 Cefepime HCl (MAXipime 1 GM vial) 1 gm Q8H IVPB 03/22/25 15:30 03/22/25 15:42 DC Dextrose (D50w) 50 ml AD PRN IV HYPOGLYCEMIA PROTOCOL 03/22/25 13:00 04/21/25 12:59 Diphenhydramine HCl (BENAdryl CREAM) 1 APPLICATION Q8H PRN TP rash 03/22/25 15:30 04/21/25 15:29 Diphenhydramine HCl (BENAdryl INJ) 25 mg Q8H PRN IV ITCHING 03/22/25 13:00 04/21/25 12:59 03/22/25 16:01 25 MG Famotidine (Pepcid 20mg Vial) 20 mg BID IV 03/22/25 21:00 04/21/25 20:59 Glucagon (Glucagon 1mg Kit) 1 mg AD PRN IM HYPOGLYCEMIA PROTOCOL 03/22/25 13:00 04/21/25 12:59 Home Med (Home Medication) (Cholecalciferol (Vitd3)/Vit K2 (Vit D3-Vit... DAILYBKFST PO 03/23/25 08:00 04/22/25 07:59 Home Med (Home Medication) (Entecavir 1 TAB) DAILYBKFST PO 03/23/25 08:00 04/22/25 07:59 Home Med (Home Medication) (Rosuvastatin Calcium 1 TAB) DAILYDINNER PO 03/22/25 17:00 04/21/25 16:59 03/22/25 17:00 1 EACH Home Med (Home Medication) TACROLIMUS 1MG. 2 TABLETS... DAILY08 PO 03/23/25 08:00 04/22/25 07:59 Home Med (Home Medication) TACROLIMUS 1MG. 2 TABLETS... DAILY20 PO 03/22/25 20:00 04/21/25 19:59 Insulin Human Regular (humuLIN R 100 UNIT/ML 3ML) INSULIN SLIDING SCAL... ACHS SQ 03/22/25 16:30 04/21/25 16:29 Losartan Potassium (CozAAR 50 mg TAB) 50 mg DAILYBKFST PO 03/23/25 08:00 04/22/25 07:59 Methylprednisolone Sodium Succinate (Solu-medROL 40MG) 40 mg Q6H IVP 03/22/25 13:30 03/22/25 13:29 DC Methylprednisolone Sodium Succinate (Solu-medROL 40MG) 40 mg Q8H IVP 03/22/25 18:00 04/21/25 17:59 Metoprolol Tartrate (loprESSOR) 25 mg BIDPC PO 03/22/25 18:00 04/21/25 17:59 Miscellaneous Medication (Non-Formulary Medication 1 Each) 1 each DAILY08 PO 03/23/25 08:00 03/22/25 16:11 DC Pramipexole Dihydrochloride (miraPEX 0.25MG TAB) 0.75 mg BIDPC PO 03/22/25 18:00 04/21/25 17:59 Tacrolimus (ProgRAF 1MG) 1 mg AD PO 03/22/25 16:00 03/22/25 16:11 DC Diagnostics / Radiology: [COPY/PASTE HERE IF NO REPORTS PLEASE DELETE SECTION] Assessment: [BEE sting allergy History of non-alcoholic Liver cirrhosis S/P liver transplant Type 2 DM Hypertension ] Plan: [ NO GI endoscopic intervention at this time Recommend pain medication as needed Patient is recommended to f/u with his PCP in 1-2 weeks and with chemical laboratory technician as scheduled. Thank you for this consult. ] JORY BURRIS NP Mar 22, 2025 17:58
[2025-03-22] MEDS: Solu-medROL 40MG VIAL IVP SCH (18:10)
--- NOTE | 2025-03-22 18:40 | NUR ---
Arrival on unit Patient arrived on unit and was transferred to his bed. Initial vitals were taken and all were within normal limits. Patient's nasal cannula was discontinued and patient was able to maintain an oxygen saturation between 92% and 93%. He did not want it put back on and it was causing discomfort. Patient was told that as long as his oxygen saturation was maintained, he could stay off the oxygen. Patient was oriented to his room, bed controls, and call light. Patient denied any pain at this time. Spouse is at bedside.
[2025-03-22] MEDS: FAMOTIDINE 20MG VIAL IV SCH (19:50)
[2025-03-22] MEDS: TACROLIMUS 1 MG PO SCH (19:51)
[2025-03-23] VITALS: BP 97/61; PULSE 62; RESP 20; TEMP 98.1
[2025-03-23 04:00] VITALS: BP 96/67; PULSE 76; RESP 18; TEMP 98.4
[2025-03-23 06:49] LABS: IMMATURE GRANULOCYTE ABSOLUTE 0.12 K/uL (0-1); NUCLEATED RED BLOOD CELLS 0.0 % (0.0-0.19); PLATELET COUNT (AUTO) 267 K/uL (130-400); RED BLOOD CELL COUNT(AUTO) 4.52 MIL/uL (4.50-6.20); RED CELL DISTRIBUTION WIDTH 12.9 % (11.0-15.5); WHITE BLOOD COUNT (AUTO) 17.4 K/uL (4.8-10.8)
[2025-03-23 06:52] LABS: CREATININE 1.0 mg/dL (0.5-1.3); GLOMERULAR FILTR. RATE CALC 81.0 mL/min (>90); GLUCOSE,RANDOM 159.0 mg/dL (70-105); SODIUM SERUM 139.0 mmol/L (136-145); UREA NITROGEN, BLOOD 29.0 mg/dL (7-18)
[2025-03-23 08:00] VITALS: BP 98/59; PULSE 72; RESP 19; TEMP 97.6; O2SAT 94
[2025-03-23] MEDS: CHOLECALCIFEROL PO SCH (08:00)
[2025-03-23] MEDS: VIT K2 PO SCH (08:00)
[2025-03-23] MEDS ORDERED: NON-FORMULARY MEDICATION 1 EACH PO SCH (08:00)
[2025-03-23] MEDS: ENTECAVIR PO SCH (08:47)
[2025-03-23] MEDS: TACROLIMUS 1 MG PO SCH (08:47)
[2025-03-23] MEDS: Solu-medROL 40MG VIAL IVP SCH (08:53)
[2025-03-23] MEDS ORDERED: METH4TAB3 PO (09:23)
[2025-03-23] MEDS ORDERED: EPIN0.3P3 IM (09:23)
--- NOTE | 2025-03-23 11:22 | PN ---
[facility] PROGRESS NOTE Date Patient Seen: Mar 23, 2025 Time of Visit: 11:22 Supervising Physician: Dr. Anthony Morrison PROBLEM LIST: Bee stings x 30-50's with inflammatory response, resolved Chronic right lung volume loss with mediastinal shift and compensatory left lung hyperexpansion, chronic per Bilateral ground-glass centrilobular nodules, right greater than left. These likely reflect an infectious and/or inflammatory process, states she was told patient has chronic lung issues from previous thoracentesis before liver transplant, advised to follow up with deployment specialist. Nonalcoholic liver cirrhosis with history of liver transplant Diabetes mellitus type 2 Hypertension Immunocompromised host Former chewing tobacco user, quit 10 years ago INTERVAL HISTORY: Patient assessed at bedside. AAOX3. Currently on room air. SpO2 levels above 95%. Sitting on bedside chair. States he is ready to go home. Explained to and patient about CT chest findings and states that she was told by doctors in [place] that patient has chronic lung changes/scarring from multiple thoracentesis he had, prior to liver transplant. Advised to follow-up with pulmonology in outpatient setting, verbalized understanding. Denies any shortness of breath, chest pain, abdominal pain, nausea or vomiting. Stable for discharge per Pulmonary standpoint. Plan: Steroid taper on discharge Follow-up with Pulmonary team once discharged Stable on room air REVIEW OF SYSTEMS: 12 point ROS reviewed with patient. Pertinent positives mentioned above. Otherwise negative. PHYSICAL EXAM: GENERAL: alert, weak, awake oriented x 3 on NC HEENT: EOMI, Sclera non icteric, moist mucosa (+) erythema to right arm and around eyes NECK: Supple, no JVD, trachea midline LUNGS: Clear breath sounds bilaterally. No wheezes HEART: Regular rate and rhythm. Normal S1 and S2, without murmurs ABD: Abdomen soft, nontender. Bowel sounds present EXT: No clubbing cyanosis or edema NEURO: AAOX3, follows commands Vital Signs (last 8hr) Date Time Temp Pulse Resp B/P (MAP) Pulse Ox O2 Delivery O2 Flow Rate FiO2 03/23/25 08:00 97.5 72 19 98/59 93 Room Air 03/23/25 04:00 98.4 76 18 96/67 95 Room Air LABS: Hematology Labs: Test 03/23/25 05:18 Range/Units White Blood Count 17.4 #H 4.8-10.8 K/uL Red Blood Count 4.52 4.50-6.20 MIL/uL Hemoglobin 13.7 L 14.0-18.0 g/dL Hematocrit 41.0 L 42-54 % Mean Corpuscular Volume 90.7 79-99 fL Mean Corpuscular Hemoglobin 30.3 27.0-33.0 pg Mean Corpuscular Hemoglobin Concent 33.4 32.0-36.0 g/dL Red Cell Distribution Width 12.9 11.0-15.5 % Platelet Count 267 130-400 K/uL Mean Platelet Volume 9.8 7.5-10.5 fL Immature Granulocyte % (Auto) 0.7 0-1 % Neutrophils (%) (Auto) 84.1 H 40.0-77.0 % Lymphocytes (%) (Auto) 10.5 L 21.0-51.0 % Monocytes (%) (Auto) 4.4 3.0-13.0 % Eosinophils (%) (Auto) 0.0 0.0-8.0 % Basophils (%) (Auto) 0.3 0.0-5.0 % Neutrophils # (Auto) 14.6 H 1.8-7.7 K/uL Lymphocytes # (Auto) 1.8 1.0-4.8 K/uL Monocytes # (Auto) 0.8 0.1-1.0 K/uL Eosinophils # (Auto) 0.00 0.00-0.70 K/uL Basophils # (Auto) 0.05 0.00-0.20 K/uL Absolute Immature Granulocyte (auto 0.12 0-1 K/uL Nucleated Red Blood Cells 0.0 0.0-0.19 % Chemistry Labs: Test 03/23/25 05:18 03/22/25 11:45 Range/Units Sodium Level 139 136-145 mmol/L Potassium Level 4.7 3.5-5.1 mmol/L Chloride Level 103 101-111 mmol/L Carbon Dioxide Level 28 21-32 mmol/L Blood Urea Nitrogen 29 H 7-18 mg/dL Creatinine 1.0 0.5-1.3 mg/dL Glomerular Filtration Rate Calc 81 >90 mL/min Random Glucose 159 H 70-105 mg/dL Total Calcium 9.4 8.5-10.1 mg/dL Hemoglobin A1c 6.5 H 4.0-6.0 % Estimated Average Glucose (eAG) 140 H 70-126 mg/dL Total Bilirubin 0.5 0.2-1.0 mg/dL Direct Bilirubin 0.2 0.0-0.3 mg/dL Aspartate Amino Transf (AST/SGOT) 17 10-37 U/L Alanine Aminotransferase (ALT/SGPT) 25 12-78 U/L Alkaline Phosphatase 103 50-136 U/L Total Creatine Kinase 64 21-232 U/L Total Protein 8.2 6.0-8.3 g/dL Albumin 3.9 3.5-5.0 g/dL Procalcitonin < 0.05 L 0.05-0.5 ng/mL DIAGNOSTICS / RADIOLOGY RESULTS: REASON: possible pnuemonia. No contrast ORDERING PHYSICIAN: BLANCA BRYAN MD PROCEDURE: CHEST WO - CT CHEST W/O CONTRAST EXAM: CT Chest Without IV contrast. CLINICAL HISTORY: Possible pneumonia. TECHNIQUE: Axial computed tomography images of the chest without intravenous contrast. COMPARISON: None provided. FINDINGS: LUNGS: Focal subpleural areas of consolidation in right lower lobe is seen. Fibroatelectatic and fibrobronchiectatic changes are seen in both lower lobes predominantly on right side. Partial volume loss of right lung parenchyma seen with right sided mediastinal shift. Compensatory hyperexpansion of left lung parenchyma is seen. Multiple ground-glass centrilobular nodules are seen in both lungs predominantly on the right side. PLEURAL SPACES: No pneumothorax evident. Minimal right-sided pleural effusion. HEART: No cardiomegaly. No significant pericardial effusion. Atherosclerotic changes in aorta. LYMPH NODES: No significant lymphadenopathy is evident. Few subcentimetre sized right paratracheal, subcarinal, AP window and prevascular lymph nodes are seen. UPPER ABDOMEN: The upper abdominal solid organs are unremarkable. An ill-defined hypodense right thyroid lobe nodule is seen measuring 3.8 x 3 cm. It is showing mild retrosternal extension. BONES: No acute osseous abnormality. Degenerative changes of visualised spine. IMPRESSION: 1. Right lower lobe consolidation, concerning for pneumonia. 2. Small right pleural effusion. 3. Chronic right lung volume loss with mediastinal shift and compensatory left lung hyperexpansion. 4. Bilateral ground-glass centrilobular nodules, right greater than left. These likely reflect an infectious and/or inflammatory process, recommend follow-up CT imaging. 5. 3.8 x 3 cm right thyroid nodule with mild retrosternal extension. Recommend ultrasound correlation. VISHAL MENESES NP Mar 23, 2025 11:22
--- NOTE | 2025-03-24 11:11 | DS ---
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 He was stung by bees. Per patient he has had bee stings before and has not had significant reaction in the past. He has taken Benadryl in the past for business. This time he got bit by multiple bees. EMS was called who brought the patient to the hospital. Patient did not need epinephrine and was not noted to be hypotensive. Patient currently denies any chest pain, shortness of breath, throat swelling, tongue swelling, difficulty breathing, abdominal pain, nausea, vomiting. Patient has a history of liver transplant and is being followed by hepatology and [place]. He took his morning medications today. Denies any fever, chills. Labs were notable for white count of 12.3, hemoglobin is 14.6, platelet count is 247 K sodium is 136, potassium was 4.4, chloride is 100, bicarb is 30, BUN is 21, creatinine is 0.9, blood glucose is 150 ED patient received methylprednisolone 125 mg IV, Pepcid 20 mg, Benadryl 25 mg, 500 mL NS, albuterol 2.5 mg once Over 30 bee-stings were removed by ED On presentation patient's temperature was 98.4, heart rate was 95, blood pressure was 122/74. Patient saturation went down to 89 and he was placed on 2 L nasal cannula with subsequent improvement. Patient was thereafter recommended to be admitted to the hospital for further evaluation. HOSPITAL COURSE 03/23 patient admitted to the medical floor, the time of my visit he remains hemodynamically stable, afebrile, saturating normal on room air, alert oriented x3, no swelling to the face, no difficulty breathing, no difficulty swallowing, no swelling of the tongue, lungs are clear. Patient would like to be discharged home. at bedside. Results of CT scan of the chest to include a thyroid nodule measuring 3.8 x 3 cm in diameter discussed in detail with both the patient and the at bedside, they are both aware of these findings, according to the thyroid nodule has not increased in size. I explained to them that I have prescribed a prescription for Medrol Dosepak and EpiPen. They are okay with the EpiPen but stating that he will not take the Medrol Dosepak. I told him that I sent the prescription anyway so he can heparin at home just in case in the near future. He was okay with that. Plan is for the patient to be discharged home. Assessment/Plan: Final diagnosis Allergic reaction to bee sting History of liver transplant Leukocytosis likely in setting of allergic reaction Immunosuppressed states Discharge Instructions: Patient would like to be discharged home. at bedside. Results of CT scan of the chest to include a thyroid nodule measuring 3.8 x 3 cm in diameter discussed in detail with both the patient and the at bedside, they are both aware of these findings, according to the thyroid nodule has not increased in size. I explained to them that I have prescribed a prescription for Medrol Dosepak and EpiPen. They are okay with the EpiPen but stating that he will not take the Medrol Dosepak. I told him that I sent the prescription anyway so he can heparin at home just in case in the near future. He was okay with that. Plan is for the patient to be discharged home. Home Medications: Active Scripts Epinephrine (Epipen 2-[place]) 0.3 Mg/0.3 Ml Auto.injct, 1 SYR IM ONCE for 1 Day, #1 PACKET 1 Refill Prov:ROXI POE MD 03/23/25 Methylprednisolone (Medrol) 4 Mg Tab.ds.pk, 1 TAB PO AD for 6 Days, #21 TAB 0 Refills 6 on day 1 then reduce by one tablet daily until gone Prov:ROXI POE MD 03/23/25 Reported Medications Zinc Sulfate (Zinc) 50 Mg Zinc (220 Mg) Tablet, 1 TAB PO PCLUNCH for 30 Days, #30 TAB 0 Refills 03/22/25 Multivitamin (Multi Vitamin Daily) 1 Each Tablet, 1 TAB PO DAILYBKFST for 30 Days, #30 TAB 0 Refills 03/22/25 Cholecalciferol (Vitd3)/Vit K2 (Vit D3-Vit K2 125-100 Mcg Sfgl) 125 Mcg (5000 Unit)-100 Mcg Capsule, 1 EACH PO DAILYBKFST, CAP 03/22/25 Semaglutide (Ozempic) 0.25 Mg/0.368 Ml Pen.injctr, 0.5 MG SQ QWEEK 03/22/25 Empagliflozin (Jardiance) 10 Mg Tablet, 1 TAB PO DAILYBKFST for 30 Days, #30 TAB 0 Refills 03/22/25 Rosuvastatin Calcium (Rosuvastatin Calcium) 10 Mg Tablet, 1 TAB PO DAILYDINNER for 30 Days, #30 TAB 0 Refills 03/22/25 Metoprolol Tartrate (Metoprolol Tartrate) 25 Mg Tablet, 1 TAB PO BIDPC for 30 Days, #60 TAB 0 Refills 03/22/25 Losartan Potassium (Losartan Potassium) 50 Mg Tablet, 1 TAB PO DAILYBKFST for 30 Days, #30 TAB 0 Refills 03/22/25 Pramipexole Di-HCl (Pramipexole ER) 0.75 Mg Tab.er.24h, 0.75 MG PO BIDPC, TAB 03/22/25 Entecavir (Entecavir) 0.5 Mg Tablet, 1 TAB PO DAILYBKFST for 30 Days, #30 TAB 0 Refills HOME MEDICATION 03/22/25 Tacrolimus (Tacrolimus) 1 Mg Capsule, 2 CAP PO AD for 30 Days, #120 CAP 0 Refills TAKE 2 CAPSULES BY MOUTH AT 8AM & 2 CAPSULES BY MOUTH AT 2000. 03/22/25 Discontinued Reported Medications Lactulose (Lactulose) 20 Gm/30 Ml Solution, 20 GM PO TID, ML 06/23/14 Trazodone HCl (Trazodone HCl) 100 Mg Tablet, 100 MG PO HS, TAB 06/22/14 Tramadol Hcl (Tramadol HCl) 50 Mg Tablet, 50 MG PO TID PRN for PAIN, TAB 06/22/14 Spironolactone (Spironolactone) 100 Mg Tablet, 100 MG PO AM, TAB 06/22/14 Rifaximin (Xifaxan) 550 Mg Tablet, 550 MG PO BIDMEALS, TAB 06/22/14 Pantoprazole Sodium (Pantoprazole Sodium) 40 Mg Tablet.dr, 40 MG PO ACBKFST, TAB SCHEDULE AT 6AM 06/22/14 Midodrine HCl (Midodrine HCl) 10 Mg Tablet, 10 MG PO TID, TAB 06/22/14 Furosemide (Furosemide) 40 Mg Tablet, 40 MG PO BIDMEALS, TAB 06/22/14 Armodafinil (Nuvigil) 50 Mg Tablet, 50 MG PO ACBKFST, TAB 06/22/14 Time spent arranging discharge: 31-60 minutes ROXI POE MD Mar 24, 2025 11:11
== END 2025-03-23 11:35 | disposition home or self-care (01) ==
LOC: EDH 11:11 → EDHIP 12:18 → 3BH 18:40
PROVIDERS: ADMIT Internal Medicine; ATTEND Internal Medicine
DX: T63.441A Toxic effect of venom of bees, accidental (unintentional), initial encounter (principal); K74.60 Unspecified cirrhosis of liver; I10 Essential (primary) hypertension; D72.829 Elevated white blood cell count, unspecified; E11.9 Type 2 diabetes mellitus without complications; Z87.891 Personal history of nicotine dependence; Z88.5 Allergy status to narcotic agent; Z94.4 Liver transplant status; Z20.822 Contact with and (suspected) exposure to COVID-19; Z79.899 Other long term (current) drug therapy; Z98.890 Other specified postprocedural states; Y92.89 Other specified places as the place of occurrence of the external cause
CPT/HCPCS: 87071; 96374; 96376 ×2; 96375; 99285; 83036; 82550; 80076; 80048 ×2; 85025 ×2; 87086 ×2; 87186 ×2; 87205; 87804 ×2; 82948 ×3; 87449; 81003; 36415 ×2; 87635; 71045; 71250; 93005; 94640; 84145; 86738; J1815; G0378 ×23; J7040; J1200 ×3; J3490 ×3; J2919 ×3